=== PATIENT | female | born 1985 | race African-American/Black ===

== ENCOUNTER 2016-10-13 04:30 | Emergency (ER) | payer OTHER ==
[~2016-10-13] VITALS: Ht 167.6 cm; Wt 68.0 kg
[~2016-10-13 04:30] MED LIST: ALBUTEROL2.5 MG/0.5 INH; AMOXICILLIN500 M2 PO; AMOXICILLIN500 MG PO; AUGMENTIN 875875 MG PO; BENADRYL25 MG PO; CEPHALEXIN500 M1 PO; CLINDAMYCIN HC300 MG PO; CLONIDINE HYDR0.1 MG PO; DEPO-PROVER150 MG/ML IM; KEFLEX500 MG PO; KETOROLAC10 MG PO; LEVAQUIN750 MG PO; LIDOCAINE VISC100 ML MM; LOMOTIL 0.025 M1 TAB PO; MACROBID100 M1 PO; MIRALAX17 GM PO; MOTRIN600 MG PO; MOTRIN800 MG PO; NAPROSYN500 MG PO; NORTRIPTYLINE10 MG PO; OMNICEF300 MG PO; PENICILLIN-VK500 MG PO; PENICILLIN250 MG PO; PEPCID20 MG PO; PERCOCET 325 MG1 TA2 PO; PHENERGAN W/DM120 ML PO; PHENERGAN25 M3 PO; PHENERGAN25 MG R; PREDNICOT10 MG PO; PREDNISONE20 M1 PO; PRENATAL ONE DA1 TAB PO; PRENATAL1 TA1 PO; PRENTAL 1 PLUS1 TAB; PROAIR HFA0.09 MG/AC INH; PROTONIX40 MG PO; Phenergan25 MG PO; RITE AID IRON PO; TORADOL10 MG PO; Tessalon Perle100 MG PO; VOLTAREN50 MG PO; ZOFRAN ODT4 MG SL; ZOFRAN4 MG PO; Zofran4 MG PO; subutex PO
[2016-10-13] MEDS ORDERED: ZOFRAN4 MG PO (04:48)
[2016-10-13] MEDS ORDERED: CLINDAMYCIN150 MG PO (04:48)
== END 2016-10-13 05:25 | disposition home or self-care (01) ==
LOC: ED 04:30
DX: K02.9 Dental caries, unspecified (principal); K05.10 Chronic gingivitis, plaque induced; L03.116 Cellulitis of left lower limb; L03.115 Cellulitis of right lower limb; G43.909 Migraine, unspecified, not intractable, without status migrainosus; F11.10 Opioid abuse, uncomplicated; F17.200 Nicotine dependence, unspecified, uncomplicated; Z88.6 Allergy status to analgesic agent; Z91.018 Allergy to other foods; Z79.899 Other long term (current) drug therapy

== ENCOUNTER 2016-12-09 13:01 | Emergency (ER) | payer OTHER ==
[~2016-12-09] VITALS: Ht 170.1 cm; Wt 70.8 kg
[~2016-12-09 13:01] MED LIST changes: +CLINDAMYCIN150 MG PO
[2016-12-09] MEDS ORDERED: ZOFRAN ODT4 MG SL (15:11)
== END 2016-12-09 16:29 | disposition home or self-care (01) ==
LOC: ED 13:01
DX: F11.23 Opioid dependence with withdrawal (principal); F17.200 Nicotine dependence, unspecified, uncomplicated; G43.909 Migraine, unspecified, not intractable, without status migrainosus; Z88.1 Allergy status to other antibiotic agents; Z91.018 Allergy to other foods

== ENCOUNTER → 2016-12-24 | Outpatient (CLI) | payer OTHER ==
[2016-12-24 14:59] LABS: BILIRUBIN NEGATIVE (NEGATIVE); BLOOD TRACE-INTACT (NEGATIVE); CLARITY SL CLOUDY (CLEAR); COLOR YELLOW (YELLOW); GLUCOSE NEGATIVE (NEGATIVE); KETONE NEGATIVE (NEGATIVE); LEUKO ESTERASE NEGATIVE (NEGATIVE); NITRITE NEGATIVE (NEGATIVE); PH 5.5 (5.0-9.0); SPECIFIC GRAVITY >= 1.030 (1.005-1.030); UROBILINOGEN 0.2 E.U./dl (0.2-1.0)
[2016-12-24 15:08] LABS: BACTERIA 2+; MUCOUS TRACE
[2016-12-25 05:07] LABS: HEP B CORE AB TOTAL 006718 Negative (Negative); HEPATITIS B SURFACE AB 006395 Non Reactive (.); HEPATITIS B SURFACE AG Negative (Negative); HEPATITIS Be ANTIGEN 006619 Negative (Negative)
[2016-12-25 15:06] LABS: AB TO HEPATITIS Be AG 006635 Negative (Negative)
== END | disposition home or self-care (01) ==
LOC: LAB 12:57 → RESCLI 12:57
PROVIDERS: Hospitalist
DX: R94.5 Abnormal results of liver function studies (principal); R82.99 Other abnormal findings in urine

== ENCOUNTER 2017-03-17 20:43 | Emergency (ER) | payer OTHER ==
[~2017-03-17] VITALS: Ht 167.6 cm; Wt 70.8 kg
[2017-03-17 21:05] LABS: BILIRUBIN 1+ (NEGATIVE); BLOOD NEGATIVE (NEGATIVE); CLARITY SL CLOUDY (CLEAR); COLOR YELLOW (YELLOW); GLUCOSE NEGATIVE (NEGATIVE); KETONE NEGATIVE (NEGATIVE); LEUKO ESTERASE NEGATIVE (NEGATIVE); NITRITE NEGATIVE (NEGATIVE); PH 5.5 (5.0-9.0); SPECIFIC GRAVITY >= 1.030 (1.005-1.030); UROBILINOGEN 0.2 E.U./dl (0.2-1.0)
[2017-03-17 21:11] LABS: BACTERIA 2+; MUCOUS TRACE; RBC 0-2 rbc/hpf (0-2)
== END 2017-03-17 22:11 | disposition home or self-care (01) ==
LOC: ED 20:43
PROVIDERS: Student in an Organized Health Care Education/Training Program
DX: Z11.3 Encounter for screening for infections with a predominantly sexual mode of transmission (principal); G89.29 Other chronic pain; G43.909 Migraine, unspecified, not intractable, without status migrainosus; F17.200 Nicotine dependence, unspecified, uncomplicated; Z88.8 Allergy status to other drugs, medicaments and biological substances; Z91.018 Allergy to other foods

== ENCOUNTER 2017-03-20 03:20 | Inpatient (IN) | payer OTHER ==
[2017-03-20] VITALS (7 sets, daily range): BP systolic 109–151; BP diastolic 58–92
[~2017-03-20] VITALS: Ht 170.2 cm; Wt 71.0 kg
--- NOTE | ~2017-03-20 | EKG ---
[place], [place] ELECTROCARDIOGRAM REPORT NAME: KIET GARCIA UNIT #: [id number] ROOM: [facility] DOCTOR: YADIRA GORDON,ARY BIRTHDATE: [birth year] DOS: 03/20/2017 TIME: 1356 hours. IMPRESSION: 1. Sinus rhythm. 2. Sinus bradycardia. 3. Nonspecific ST-T changes. 4. Normal QT interval. ARY MAY MD CM:EKGRPT:ELECTROCARDIOGRAM REPORT [id number] ARY MAY MD
--- NOTE | ~2017-03-20 | PROC NOTE ---
[place], [place] PROCEDURE NOTE NAME: [facility]ARCIA [facility] [id number] UNIT #: [id number] ROOM: [facility] DOCTOR: CHRIS GARCIA MD BIRTHDATE: [birth year] DOS: 03/21/2017 PREOPERATIVE DIAGNOSIS: Left elbow abscess. POSTOPERATIVE DIAGNOSIS: Left elbow abscess. PROCEDURE: Incision and drainage of left elbow abscess. 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 ANESTHESIA: MAC. INDICATIONS: This is a 31-year-old -[place] lady with a history of IV drug abuse, who got admitted with left elbow abscess. It was decided to take the patient to the operating room today for an incision and drainage. The procedure and its complications were explained to the patient in detail and she agreed to proceed. DESCRIPTION OF PROCEDURE: After identifying the patient, the patient was brought to the operating suite and laid on the operating table. After IV sedation was administered, the parts were painted and draped in the usual sterile fashion. A time-out procedure was called. An incision was made in the region of the abscess in a transverse fashion. The skin and the subcutaneous tissue were incised and the abscess cavity was entered. There was very minimal pus that was identified. Saline was used for irrigation. Thereafter, a quarter-inch iodoform pack was inserted, and a dressing was placed. The patient tolerated the procedure well. There were no complications. Dr. Chris Garcia, the attending surgeon, was present throughout the operating case. hCris Garcia MD CM:PROCNOTE:PROCEDURE NOTE [id number] CHRIS GARCIA MD
[2017-03-20 03:54] LABS: HEMATOCRIT 35.3 % (37.0-47.0); HEMOGLOBIN 11.5 g/dl (12.0-16.0); MEAN CELL VOLUME 81.5 fl (81.0-99.0); MEAN CORPUSCULAR HGB 26.6 pg (27.0-31.0); MEAN CORPUSCULAR HGB CONC 32.6 g/dl (33.0-37.0); MEAN PLATELET VOLUME 11.1 fl (9.6-12.3); PLATELET COUNT AUTOMATED 199 10*3/uL (130-400); RED BLOOD COUNT 4.33 10*6/uL (4.10-5.10); RED CELL DISTRI WIDTH 14.8 % (0-14.5); WHITE BLOOD COUNT 10.7 10*3/uL (4.8-10.8)
[2017-03-20 04:11] LABS: ALBUMIN 2.9 gm/dl (3.1-4.5); ALKALINE PHOSPHATASE 155 U/L (45-117); BUN 11 mg/dl (7-24); CHLORIDE 103 mmol/L (98-107); CREATININE 0.71 mg/dL (0.55-1.02); POTASSIUM 3.4 mmol/L (3.5-5.1); SGOT/AST 98 IU/L (3-35); SGPT/ALT 134 U/L (12-78); SODIUM 138 mmol/L (136-145); TOTAL PROTEIN 7.4 gm/dL (6.4-8.2)
[2017-03-20 04:23] LABS: ATYPICAL LYMPHS 2 % (0-0); MICROCYTOSIS SLIGHT; PLATELET SUFFICIENCY NORMAL (NORMAL); TOTAL CELLS COUNTED 100 #CELLS
[2017-03-20] MEDS ORDERED: SEPTDS PO (04:32)
[2017-03-20 15:15] LABS: BILIRUBIN NEGATIVE (NEGATIVE); BLOOD NEGATIVE (NEGATIVE); CLARITY CLEAR (CLEAR); COLOR YELLOW (YELLOW); GLUCOSE NEGATIVE (NEGATIVE); KETONE NEGATIVE (NEGATIVE); LEUKO ESTERASE NEGATIVE (NEGATIVE); NITRITE NEGATIVE (NEGATIVE); PH 7.5 (5.0-9.0)
[2017-03-20 15:22] LABS: BACTERIA 2+; RBC 0-2 rbc/hpf (0-2)
[2017-03-20 15:28] LABS: URINE CANNABINOIDS (THC) < 50 (50ng/ml)
[2017-03-20 15:44] LABS: URINE AMPHETAMINES < 1000 (1000ng/ml); URINE BARBITURATES < 200 (200ng/ml); URINE BENZODIAZEPINES < 200 (200ng/ml); URINE COCAINE > 300 (300ng/ml); URINE METHADONE < 300 (300ng/ml); URINE OPIATES < 300 (300ng/ml)
[2017-03-20 15:45] LABS: URINE PHENCYCLIDINE < 25 (25ng/ml)
[2017-03-21] VITALS (9 sets, daily range): BP systolic 109–153; BP diastolic 58–96
[2017-03-21 04:23] LABS: ACT PARTIAL THROMBO TIME 25.7 SECONDS (20.8-31.5); INTERNATIONAL NORM RATIO 1.1 (2.0-3.5)
[2017-03-21 04:31] LABS: ALBUMIN 2.9 gm/dl (3.1-4.5); BUN 10 mg/dl (7-24); CHLORIDE 112 mmol/L (98-107); CHOLESTEROL 122 mg/dL (<200); CREATININE 0.81 mg/dL (0.55-1.02); PHOSPHOROUS 2.5 mg/dL (2.5-4.9); POTASSIUM 3.7 mmol/L (3.5-5.1); SGOT/AST 55 IU/L (3-35); SGPT/ALT 107 U/L (12-78); SODIUM 144 mmol/L (136-145); TOTAL PROTEIN 7.3 gm/dL (6.4-8.2); TRIGLYCERIDES 76 mg/dl (<150); VLDL CHOLESTEROL 15 mg/dL (6-40)
[2017-03-21 04:36] LABS: BASO % 0.3 % (0.0-1.0); EOS % 0.1 % (1.0-4.0); HEMATOCRIT 34.1 % (37.0-47.0); HEMOGLOBIN 11.3 g/dl (12.0-16.0); LYMPH # 1.7 10*3/uL (1.3-4.4); MEAN CELL VOLUME 81.6 fl (81.0-99.0); MEAN CORPUSCULAR HGB CONC 33.1 g/dl (33.0-37.0); MEAN PLATELET VOLUME 12.5 fl (9.6-12.3); MONO # 0.5 10*3/uL (0.1-1.0); MONO % 4.7 % (3.0-9.0); NEUT # 7.6 10*3/uL (2.3-7.9); NEUT % 77.5 % (47.0-73.0); PLATELET COUNT AUTOMATED 222 10*3/uL (130-400); RED BLOOD COUNT 4.18 10*6/uL (4.10-5.10); RED CELL DISTRI WIDTH 15.3 % (0-14.5); WHITE BLOOD COUNT 9.8 10*3/uL (4.8-10.8)
[2017-03-21 04:38] LABS: ALKALINE PHOSPHATASE 114 U/L (45-117); HDL CHOLESTEROL 35 mg/dl (40-60); LDL CHOLESTEROL 72 mg/dL (9-159); THYROID STIM HORMONE (HS) 0.541 uIU/ml (0.358-4.75)
[2017-03-21 22:06] LABS: BILIRUBIN 1+ (NEGATIVE); BLOOD NEGATIVE (NEGATIVE); CLARITY CLOUDY (CLEAR); COLOR YELLOW (YELLOW); GLUCOSE NEGATIVE (NEGATIVE); KETONE 1+ (NEGATIVE); LEUKO ESTERASE NEGATIVE (NEGATIVE); NITRITE NEGATIVE (NEGATIVE); SPECIFIC GRAVITY >= 1.030 (1.005-1.030); UROBILINOGEN 0.2 E.U./dl (0.2-1.0)
[2017-03-21 22:11] LABS: BACTERIA TRACE; WBC 0-2 wbc/hpf (0-5)
[2017-03-22] VITALS: BP 105/60
[2017-03-22 06:33] LABS: BASO % 0.3 % (0.0-1.0); EOS # 0.1 10*3/uL (0.0-0.4); EOS % 1.4 % (1.0-4.0); HEMATOCRIT 29.6 % (37.0-47.0); HEMOGLOBIN 9.7 g/dl (12.0-16.0); LYMPH # 2.4 10*3/uL (1.3-4.4); LYMPH % 34.9 % (27.0-41.0); MEAN CELL VOLUME 82.2 fl (81.0-99.0); MEAN CORPUSCULAR HGB 26.9 pg (27.0-31.0); MEAN CORPUSCULAR HGB CONC 32.8 g/dl (33.0-37.0); MEAN PLATELET VOLUME 11.8 fl (9.6-12.3); MONO # 0.6 10*3/uL (0.1-1.0); MONO % 7.9 % (3.0-9.0); NEUT # 3.9 10*3/uL (2.3-7.9); NEUT % 55.2 % (47.0-73.0); PLATELET COUNT AUTOMATED 219 10*3/uL (130-400); RED CELL DISTRI WIDTH 15.6 % (0-14.5)
[2017-03-22 07:02] LABS: ALBUMIN 2.5 gm/dl (3.1-4.5); BUN 11 mg/dl (7-24); CHLORIDE 112 mmol/L (98-107); CREATININE 0.78 mg/dL (0.55-1.02); PHOSPHOROUS 2.8 mg/dL (2.5-4.9); POTASSIUM 3.5 mmol/L (3.5-5.1); SGOT/AST 30 IU/L (3-35); SGPT/ALT 75 U/L (12-78); SODIUM 144 mmol/L (136-145)
[2017-03-22 07:04] LABS: ALKALINE PHOSPHATASE 85 U/L (45-117); TOTAL PROTEIN 6.3 gm/dL (6.4-8.2)
[2017-03-22 08:00] VITALS: BP 140/94
[2017-03-22] MEDS ORDERED: DOXYCYCLINE100 M3 PO (10:28)
[2017-03-22] MEDS ORDERED: TRAZODONE50 MG PO (10:28)
[2017-03-22] MEDS ORDERED: REQUIP0.5 MG PO (10:28)
[2017-03-22] MEDS ORDERED: ZOFRAN4 MG PO (10:28)
[2017-03-22] MEDS ORDERED: VISTARIL25 MG PO (10:28)
== END 2017-03-22 11:56 | disposition home or self-care (01) | DRG 872 ==
LOC: ED 03:20 → EDHOLD 06:30 → 5E 06:30
PROVIDERS: Family Medicine; Internal Medicine; Internal Medicine Nephrology; Student in an Organized Health Care Education/Training Program
PROC: 0J9H3ZZ Drainage of Left Lower Arm Subcutaneous Tissue and Fascia, Percutaneous Approach (ICD-10-PCS; principal; 2017-03-21)
DX: A41.9 Sepsis, unspecified organism (principal); E44.0 Moderate protein-calorie malnutrition; L03.114 Cellulitis of left upper limb; L02.414 Cutaneous abscess of left upper limb; E87.6 Hypokalemia; B19.20 Unspecified viral hepatitis C without hepatic coma; F14.90 Cocaine use, unspecified, uncomplicated; F11.90 Opioid use, unspecified, uncomplicated; F17.200 Nicotine dependence, unspecified, uncomplicated; D72.9 Disorder of white blood cells, unspecified; D72.810 Lymphocytopenia; D64.9 Anemia, unspecified; R74.0 Nonspecific elevation of levels of transaminase and lactic acid dehydrogenase [LDH]; G43.909 Migraine, unspecified, not intractable, without status migrainosus; Z82.49 Family history of ischemic heart disease and other diseases of the circulatory system; Z71.6 Tobacco abuse counseling; Z91.018 Allergy to other foods; Z98.891 History of uterine scar from previous surgery; Z91.09 Other allergy status, other than to drugs and biological substances; Z83.3 Family history of diabetes mellitus; Z68.25 Body mass index [BMI] 25.0-25.9, adult

== ENCOUNTER 2018-12-20 13:57 | Emergency (ER) | payer MEDICAID ==
[~2018-12-20] VITALS: Ht 170.1 cm; Wt 79.8 kg
[~2018-12-20 13:57] MED LIST changes: +DOXYCYCLINE100 M3 PO; +REQUIP0.5 MG PO; +SEPTDS PO; +TRAZODONE50 MG PO; +VISTARIL25 MG PO
[2018-12-20 14:36] LABS: BILIRUBIN NEGATIVE (NEGATIVE); BLOOD 3+ (NEGATIVE); CLARITY CLOUDY (CLEAR); COLOR YELLOW (YELLOW); GLUCOSE NEGATIVE (NEGATIVE); KETONE NEGATIVE (NEGATIVE); LEUKO ESTERASE 2+ (NEGATIVE); NITRITE POSITIVE (NEGATIVE); PH 5.5 (5.0-9.0); SPECIFIC GRAVITY >= 1.030 (1.005-1.030)
[2018-12-20 14:42] LABS: BACTERIA TRACE; RBC TNTC rbc/hpf (0-2); WBC TNTC wbc/hpf (0-5)
[2018-12-20] MEDS ORDERED: KEFLEX500 M1 PO (15:23)
== END 2018-12-20 15:35 | disposition home or self-care (01) ==
LOC: ED 13:57
PROVIDERS: Nurse Practitioner Family
DX: J06.9 Acute upper respiratory infection, unspecified (principal); N39.0 Urinary tract infection, site not specified; R11.2 Nausea with vomiting, unspecified; F17.200 Nicotine dependence, unspecified, uncomplicated; Z32.01 Encounter for pregnancy test, result positive; Z91.018 Allergy to other foods; Z88.6 Allergy status to analgesic agent

== ENCOUNTER 2019-01-05 01:25 | Emergency (ER) | payer OTHER ==
[~2019-01-05] VITALS: Ht 170.1 cm; Wt 79.8 kg
[~2019-01-05 01:25] MED LIST changes: +KEFLEX500 M1 PO
[2019-01-05 02:01] LABS: BILIRUBIN NEGATIVE (NEGATIVE); BLOOD NEGATIVE (NEGATIVE); CLARITY CLOUDY (CLEAR); COLOR YELLOW (YELLOW); GLUCOSE NEGATIVE (NEGATIVE); KETONE NEGATIVE (NEGATIVE); LEUKO ESTERASE 1+ (NEGATIVE); NITRITE POSITIVE (NEGATIVE); PH 5.5 (5.0-9.0); SPECIFIC GRAVITY >= 1.030 (1.005-1.030)
[2019-01-05 02:21] LABS: BASO % 0.2 % (0.0-1.0); EOS # 0.2 10*3/uL (0.0-0.4); EOS % 1.9 % (1.0-4.0); HEMATOCRIT 37.2 % (37.0-47.0); LYMPH # 2.1 10*3/uL (1.3-4.4); LYMPH % 25.1 % (27.0-41.0); MEAN CELL VOLUME 88.2 fl (81.0-99.0); MEAN CORPUSCULAR HGB 28.4 pg (27.0-31.0); MEAN CORPUSCULAR HGB CONC 32.3 g/dl (33.0-37.0); MEAN PLATELET VOLUME 11.3 fl (9.6-12.3); MONO # 0.5 10*3/uL (0.1-1.0); NEUT # 5.6 10*3/uL (2.3-7.9); NEUT % 66.6 % (47.0-73.0); PLATELET COUNT AUTOMATED 303 10*3/uL (130-400); RED BLOOD COUNT 4.22 10*6/uL (4.10-5.10); RED CELL DISTRI WIDTH 14.5 % (0-14.5); WHITE BLOOD COUNT 8.4 10*3/uL (4.8-10.8)
[2019-01-05 02:21] LABS: BACTERIA 2+; WBC 31-40 wbc/hpf (0-5)
[2019-01-05 02:28] LABS: BUN 8 mg/dl (7-24); CHLORIDE 105 mmol/L (98-107); CREATININE 0.69 mg/dL (0.55-1.02); POTASSIUM 3.3 mmol/L (3.5-5.1); SODIUM 138 mmol/L (136-145)
[2019-01-05] MEDS ORDERED: MACROBID100 M1 PO (04:53)
== END 2019-01-05 05:04 | disposition home or self-care (01) ==
LOC: ED 01:25
PROVIDERS: Emergency Medicine
DX: O23.41 Unspecified infection of urinary tract in pregnancy, first trimester (principal); O99.331 Smoking (tobacco) complicating pregnancy, first trimester; Z3A.01 Less than 8 weeks gestation of pregnancy; Z91.048 Other nonmedicinal substance allergy status; Z91.018 Allergy to other foods; Z88.8 Allergy status to other drugs, medicaments and biological substances; Z79.899 Other long term (current) drug therapy; Z79.2 Long term (current) use of antibiotics

== ENCOUNTER 2019-01-24 16:38 | Emergency (ER) | payer OTHER ==
[~2019-01-24] VITALS: Ht 170.1 cm; Wt 79.8 kg
[2019-01-24 17:59] LABS: ALBUMIN 3.1 gm/dl (3.1-4.5); ALKALINE PHOSPHATASE 46 U/L (45-117); BUN 8 mg/dl (7-24); CHLORIDE 108 mmol/L (98-107); CREATININE 0.59 mg/dL (0.55-1.02); LIPASE 92 U/L (73-393); POTASSIUM 3.7 mmol/L (3.5-5.1); SGOT/AST 34 IU/L (3-35); SGPT/ALT 40 U/L (12-78); SODIUM 138 mmol/L (136-145); TOTAL PROTEIN 7.3 gm/dL (6.4-8.2)
[2019-01-24 18:20] LABS: HEMATOCRIT 35.4 % (37.0-47.0); HEMOGLOBIN 11.9 g/dl (12.0-16.0); MEAN CELL VOLUME 85.3 fl (81.0-99.0); MEAN CORPUSCULAR HGB 28.7 pg (27.0-31.0); MEAN CORPUSCULAR HGB CONC 33.6 g/dl (33.0-37.0); MEAN PLATELET VOLUME 12.1 fl (9.6-12.3); PLATELET COUNT AUTOMATED 166 10*3/uL (130-400); RED BLOOD COUNT 4.15 10*6/uL (4.10-5.10); RED CELL DISTRI WIDTH 13.7 % (0-14.5); WHITE BLOOD COUNT 10.1 10*3/uL (4.8-10.8)
[2019-01-24] MEDS ORDERED: DICLEGIS DR 101 EACH PO (18:36)
[2019-01-24 19:17] LABS: TOTAL CELLS COUNTED 100 #CELLS
[2019-01-24 19:18] LABS: BURR CELLS MODERATE; PLATELET SUFFICIENCY NORMAL (NORMAL)
== END 2019-01-24 18:41 | disposition home or self-care (01) ==
LOC: ED 16:38
PROVIDERS: Physician Assistant
DX: O26.891 Other specified pregnancy related conditions, first trimester (principal); R11.2 Nausea with vomiting, unspecified; R10.13 Epigastric pain; O99.331 Smoking (tobacco) complicating pregnancy, first trimester; Z3A.01 Less than 8 weeks gestation of pregnancy; Z91.048 Other nonmedicinal substance allergy status; Z91.018 Allergy to other foods; Z79.2 Long term (current) use of antibiotics; Z79.899 Other long term (current) drug therapy

== ENCOUNTER 2019-02-22 21:13 | Emergency (ER) | payer OTHER ==
[~2019-02-22] VITALS: Ht 170.1 cm; Wt 81.6 kg
[~2019-02-22 21:13] MED LIST changes: +DICLEGIS DR 101 EACH PO
== END 2019-02-22 21:34 | disposition home or self-care (01) ==
LOC: ED 21:13
DX: O99.511 Diseases of the respiratory system complicating pregnancy, first trimester (principal); O99.331 Smoking (tobacco) complicating pregnancy, first trimester; R05 Cough; F17.200 Nicotine dependence, unspecified, uncomplicated; Z3A.12 12 weeks gestation of pregnancy; Z88.6 Allergy status to analgesic agent; Z91.018 Allergy to other foods

== ENCOUNTER 2019-04-10 17:56 | Emergency (ER) | payer OTHER ==
[~2019-04-10] VITALS: Ht 170.1 cm; Wt 77.1 kg
[2019-04-10 18:37] LABS: HEMATOCRIT 35.2 % (37.0-47.0); HEMOGLOBIN 11.6 g/dl (12.0-16.0); MEAN CELL VOLUME 87.1 fl (81.0-99.0); MEAN CORPUSCULAR HGB 28.7 pg (27.0-31.0); MEAN PLATELET VOLUME 11.3 fl (9.6-12.3); PLATELET COUNT AUTOMATED 308 10*3/uL (130-400); RED BLOOD COUNT 4.04 10*6/uL (4.10-5.10); RED CELL DISTRI WIDTH 13.7 % (0-14.5); WHITE BLOOD COUNT 18.3 10*3/uL (4.8-10.8)
[2019-04-10 18:52] LABS: ALBUMIN 2.7 gm/dl (3.1-4.5); ALKALINE PHOSPHATASE 103 U/L (45-117); BUN 6 mg/dl (7-24); CHLORIDE 110 mmol/L (98-107); CREATININE 0.63 mg/dL (0.55-1.02); LIPASE 149 U/L (73-393); POTASSIUM 3.5 mmol/L (3.5-5.1); SGOT/AST 17 IU/L (3-35); SGPT/ALT 23 U/L (12-78); SODIUM 139 mmol/L (136-145); TOTAL PROTEIN 7.5 gm/dL (6.4-8.2)
[2019-04-10 18:56] LABS: PLATELET SUFFICIENCY NORMAL (NORMAL); TOTAL CELLS COUNTED 100 #CELLS
[2019-04-10 18:57] LABS: BURR CELLS FEW
[2019-04-10 19:08] LABS: BILIRUBIN NEGATIVE (NEGATIVE); BLOOD NEGATIVE (NEGATIVE); CLARITY SL CLOUDY (CLEAR); COLOR YELLOW (YELLOW); GLUCOSE NEGATIVE (NEGATIVE); KETONE 2+ (NEGATIVE); LEUKO ESTERASE NEGATIVE (NEGATIVE); NITRITE NEGATIVE (NEGATIVE); PH >= 9.0 (5.0-9.0)
[2019-04-10 19:46] LABS: BACTERIA 1+; EPITHELIAL CELLS 21-30
[2019-04-10 20:47] LABS: URINE AMPHETAMINES < 1000 (1000ng/ml); URINE BARBITURATES < 200 (200ng/ml); URINE BENZODIAZEPINES < 200 (200ng/ml); URINE CANNABINOIDS (THC) < 50 (50ng/ml); URINE COCAINE > 300 (300ng/ml); URINE METHADONE < 300 (300ng/ml); URINE OPIATES < 300 (300ng/ml)
[2019-04-10 20:49] LABS: URINE PHENCYCLIDINE < 25 (25ng/ml)
== END 2019-04-10 21:14 | disposition short-term general hospital (02) ==
LOC: ED 17:56
PROVIDERS: Emergency Medicine; Emergency Medicine Emergency Medical Services
DX: O26.892 Other specified pregnancy related conditions, second trimester (principal); F11.23 Opioid dependence with withdrawal; J45.909 Unspecified asthma, uncomplicated; K21.9 Gastro-esophageal reflux disease without esophagitis; G43.909 Migraine, unspecified, not intractable, without status migrainosus; F17.200 Nicotine dependence, unspecified, uncomplicated; Z3A.16 16 weeks gestation of pregnancy; Z91.018 Allergy to other foods; Z88.6 Allergy status to analgesic agent

== ENCOUNTER → 2020-08-17 | Outpatient (CLI) | payer OTHER | END | disposition home or self-care (01) | LOC: US 10:36 | PROVIDERS: ATTEND Physician Assistant | DX: S72.91XA Unspecified fracture of right femur, initial encounter for closed fracture (principal); X58.XXXD Exposure to other specified factors, subsequent encounter ==

== ENCOUNTER 2022-09-30 12:41 | Emergency (ER) | payer OTHER ==
[~2022-09-30] VITALS: Ht 170.1 cm; Wt 70.3 kg
[2022-09-30 16:21] LABS: BASO % 0.2 % (0.0-1.0); EOS % 0.4 % (1.0-4.0); HEMATOCRIT 32.8 % (37.0-47.0); LYMPH # 1.9 10*3/uL (1.3-4.4); LYMPH % 20.8 % (27.0-41.0); MEAN CELL VOLUME 80.4 fl (81.0-99.0); MEAN CORPUSCULAR HGB 25.7 pg (27.0-31.0); MONO # 1.2 10*3/uL (0.1-1.0); MONO % 12.8 % (3.0-9.0); NEUT # 6.1 10*3/uL (2.3-7.9); NEUT % 65.5 % (47.0-73.0); PLATELET COUNT AUTOMATED 289 10*3/uL (130-400); RED BLOOD COUNT 4.08 10*6/uL (4.10-5.10); RED CELL DISTRI WIDTH 14.9 % (0-14.5); WHITE BLOOD COUNT 9.3 10*3/uL (4.8-10.8)
[2022-09-30 16:33] LABS: ACT PARTIAL THROMBO TIME 35.5 SECONDS (20.0-32.1); INTERNATIONAL NORM RATIO 1.2 (2.0-3.5)
[2022-09-30 16:43] LABS: ALKALINE PHOSPHATASE 69 U/L (46-116); BUN 7 mg/dl (9-23); CHLORIDE 101 mmol/L (98-107); LIPASE 28 U/L (12-53); POTASSIUM 3.5 mmol/L (3.4-5.1); SGPT/ALT 15 U/L (10-49); TOTAL PROTEIN 7.5 gm/dL (6.0-8.0)
[2022-09-30 16:58] LABS: BILIRUBIN 1+ (Negative); BLOOD Negative (Negative); CLARITY Turbid (Clear); COLOR Orange (Yellow); GLUCOSE Negative (Negative); KETONE Trace (Negative); LEUKO ESTERASE Trace (Negative); NITRITE Negative (Negative); PH 5.5 (4.5-8.0); SPECIFIC GRAVITY 1.025 (1.001-1.030)
[2022-09-30 17:03] LABS: URINE AMPHETAMINES Positive (1000ng/ml); URINE BARBITURATES Negative (200ng/ml); URINE BENZODIAZEPINES Negative (200ng/ml); URINE CANNABINOIDS (THC) Negative (50ng/ml); URINE COCAINE Positive (300ng/ml); URINE METHADONE Negative (300ng/ml); URINE OPIATES Positive (300ng/ml); URINE PHENCYCLIDINE Negative (25ng/ml)
== END 2022-09-30 17:40 | disposition home or self-care (01) ==
LOC: ED 12:41
PROVIDERS: Internal Medicine
DX: M25.552 Pain in left hip (principal); M25.551 Pain in right hip; G89.29 Other chronic pain; M54.50 Low back pain, unspecified; J45.909 Unspecified asthma, uncomplicated; K21.9 Gastro-esophageal reflux disease without esophagitis; G43.909 Migraine, unspecified, not intractable, without status migrainosus; Z88.8 Allergy status to other drugs, medicaments and biological substances; Z91.018 Allergy to other foods; Z88.6 Allergy status to analgesic agent; Z98.890 Other specified postprocedural states; F14.90 Cocaine use, unspecified, uncomplicated; F17.200 Nicotine dependence, unspecified, uncomplicated; Z79.899 Other long term (current) drug therapy

== ENCOUNTER 2022-11-30 17:02 | Emergency (ER) | payer OTHER ==
[~2022-11-30] VITALS: Wt 70.3 kg
[2022-11-30] MEDS ORDERED: CLONIDINE HCL0.2 MG PO (17:37)
[2022-11-30] MEDS ORDERED: GABAPENTIN600 MG PO (17:39)
[2022-11-30] MEDS ORDERED: SUBOXONE 8 MG-1 EACH SL (17:39)
[2022-11-30 18:12] LABS: BASO % 0.4 % (0.0-1.0); EOS % 0.1 % (1.0-4.0); HEMATOCRIT 48.9 % (37.0-47.0); LYMPH % 20.9 % (27.0-41.0); MEAN CELL VOLUME 85.8 fl (81.0-99.0); MEAN CORPUSCULAR HGB 26.1 pg (27.0-31.0); MEAN CORPUSCULAR HGB CONC 30.5 g/dl (33.0-37.0); MEAN PLATELET VOLUME 10.3 fl (9.6-12.3); MONO # 0.6 10*3/uL (0.1-1.0); MONO % 5.9 % (3.0-9.0); NEUT # 6.8 10*3/uL (2.3-7.9); NEUT % 72.4 % (47.0-73.0); PLATELET COUNT AUTOMATED 384 10*3/uL (130-400); RED CELL DISTRI WIDTH 14.7 % (0-14.5); WHITE BLOOD COUNT 9.4 10*3/uL (4.8-10.8)
[2022-11-30 18:30] LABS: ALKALINE PHOSPHATASE 87 U/L (46-116); BUN 8 mg/dl (9-23); CHLORIDE 110 mmol/L (98-107); POTASSIUM 3.8 mmol/L (3.4-5.1); SGPT/ALT 64 U/L (10-49); TOTAL PROTEIN 9.5 gm/dL (6.0-8.0)
== END 2022-11-30 19:09 | disposition home or self-care (01) ==
LOC: ED 17:02
PROVIDERS: Internal Medicine
DX: F11.93 Opioid use, unspecified with withdrawal (principal); J45.909 Unspecified asthma, uncomplicated; K21.9 Gastro-esophageal reflux disease without esophagitis; G43.909 Migraine, unspecified, not intractable, without status migrainosus; Z88.8 Allergy status to other drugs, medicaments and biological substances; Z91.018 Allergy to other foods; Z88.6 Allergy status to analgesic agent; Z98.890 Other specified postprocedural states; F14.90 Cocaine use, unspecified, uncomplicated; F17.200 Nicotine dependence, unspecified, uncomplicated